=== PATIENT | male | born 1980 | race Hispanic/Latino ===

== ENCOUNTER 2022-02-10 13:49 | Emergency (ER) | payer OTHER ==
[~2022-02-10] VITALS: Ht 180.3 cm; Wt 81.6 kg
[2022-02-10] MEDS ORDERED: PHARMACY COMMUNICATION MISC STA (13:54)
[2022-02-10] MEDS ORDERED: ONDANSETRON 4MG INJ ONE (13:55)
[2022-02-10] MEDS ORDERED: MORPHINE 2 MG SYG ONE (13:55)
[2022-02-10] MEDS ORDERED: KETOROLAC 30MG VIAL (30MG/ML) ONE (13:55)
[2022-02-10] MEDS ORDERED: 0.9%NACL 1000ML 2,000 ML IV ONE (14:00)
[2022-02-10] MEDS ORDERED: LACTATED RINGERS 1000ML 1,000 ML IV ONE (14:00)
[2022-02-10] MEDS ORDERED: ONDANSETRON 4MG INJ IVP ONE (14:00)
[2022-02-10] MEDS ORDERED: KETOROLAC 30MG VIAL (30MG/ML) IVP ONE (14:00)
[2022-02-10] MEDS ORDERED: MORPHINE 2 MG SYG IVP ONE (14:00)
[2022-02-10 14:02] LABS: BASOPHILS % (AUTO) 0.4 % (0.0-5.0); EOSINOPHILS % (AUTO) 1.1 % (0.0-8.0); HEMATOCRIT 48.9 % (42-54); LYMPHOCYTES % (AUTO) 47.4 % (21.0-51.0); MEAN CORPUSCULAR HEMOGLOBIN 31.2 pg (27.0-33.0); MEAN CORPUSCULAR HGB CONC 35.4 g/dL (32.0-36.0); MEAN CORPUSCULAR VOLUME 88.1 fL (79-99); MONOCYTES % (AUTO) 8.2 % (3.0-13.0); NEUTROPHILS % (AUTO) 42.8 % (40.0-77.0); PLATELET COUNT (AUTO) 315 K/uL (130-400); RED BLOOD CELL COUNT(AUTO) 5.55 MIL/uL (4.50-6.20); RED CELL DISTRIBUTION WIDTH 11.9 % (11.0-15.5); WHITE BLOOD COUNT (AUTO) 8.4 K/uL (4.8-10.8)
[2022-02-10 14:09] LABS: CREATININE 1.1 mg/dL (0.5-1.5); POTASSIUM 3.7 mmol/L (3.5-5.1)
[2022-02-10 14:14] LABS: ALBUMIN 4.9 g/dL (3.5-5.0); TOTAL PROTEIN, SERUM 8.7 g/dL (6.0-8.3)
[2022-02-10] MEDS ORDERED: LIDOCAINE HCL IV ONE ×4 (14:30)
[2022-02-10] MEDS ORDERED: [UNRECOGNIZED DRUG - OTHER] IV ONE ×4 (14:30)
[2022-02-10] MEDS ORDERED: 0.9%NACL 1000ML 1,000 ML IV ONE (15:00)
[2022-02-10 16:04] LABS: APPEARANCE,URINE CLEAR (CLEAR); BILIRUBIN,URINE NEGATIVE (NEGATIVE); COLOR,URINE DARK-YELLOW (YELLOW); GLUCOSE, URINE (UA) NEGATIVE (NEGATIVE); KETONES,URINE 10 mg/dL (NEGATIVE); LEUKOCYTE ESTERASE ,URINE NEGATIVE Leu/uL (NEGATIVE); NITRATE,URINE NEGATIVE (NEGATIVE); OCCULT BLOOD,URINE LARGE (NEGATIVE); PH,URINE 5.5 (5.0-8.0); PROTEIN,URINE NEGATIVE (NEGATIVE); UROBILINOGEN,URINE 0.2 mg/dL (0.2-1.0)
[2022-02-10 16:07] LABS: MUCUS,URINE RARE LPF (None Seen); RBC,URINE 51-100 /HPF (0-1)
[2022-02-10] MEDS ORDERED: IBUP-1493 PO (16:53)
[2022-02-10] MEDS ORDERED: OMEP20TA2 PO (16:53)
[2022-02-10] MEDS ORDERED: ONDA-104 PO (16:53)
[2022-02-10] MEDS ORDERED: TAMS-1 PO (16:53)
[2022-02-10 16:57] VITALS: BP 123/62
[2022-02-10] MEDS ORDERED: TRAM50TA2 PO (17:15)
== END 2022-02-10 17:24 | disposition home or self-care (01) ==
LOC: EDH 13:49
DX: N20.0 Calculus of kidney (principal); K22.6 Gastro-esophageal laceration-hemorrhage syndrome
CPT/HCPCS: 99285; 74176; 96365; 96375; 96361; 80053; 83690; 85025; 81001; 36415; 93005; J2405; J1885; J3490